=== PATIENT | female | born 1990 | race African-American/Black ===

== ENCOUNTER → 2018-04-17 | Outpatient (CLI) | payer OTHER ==
[~2018-04-17] MED LIST: PRENATAL1 TA7 PO; PROAIR RESPICL90 MCG IH; TYLENOL EXTRA500 MG PO; VICODIN 5-3001 EACH PO; ZITHROMAX250 MG PO
== END | disposition home or self-care (01) ==
LOC: RAD 17:02
DX: R07.9 Chest pain, unspecified (principal)

== ENCOUNTER → 2018-08-30 | Outpatient (CLI) | payer OTHER | END | disposition home or self-care (01) | LOC: LAB 14:10 | DX: N91.2 Amenorrhea, unspecified (principal) ==

== ENCOUNTER → 2018-10-11 | Outpatient (CLI) | payer OTHER | END | disposition home or self-care (01) | LOC: US 10-07 12:57 | DX: Z34.81 Encounter for supervision of other normal pregnancy, first trimester (principal); Z3A.10 10 weeks gestation of pregnancy ==

== ENCOUNTER 2018-12-18 04:59 | Emergency (ER) | payer OTHER ==
[~2018-12-18] VITALS: Ht 167.6 cm; Wt 117.9 kg
== END 2018-12-18 05:23 | disposition home or self-care (01) ==
LOC: ED 04:59
DX: O99.512 Diseases of the respiratory system complicating pregnancy, second trimester (principal); O26.892 Other specified pregnancy related conditions, second trimester; J02.9 Acute pharyngitis, unspecified; M43.6 Torticollis; Z3A.20 20 weeks gestation of pregnancy

== ENCOUNTER → 2018-12-19 | Outpatient (CLI) | payer OTHER ==
[~2018-12-19] MED LIST changes: +ESGIC 325 MG-5050 MG PO; +GOOD NEIGHBOR150 MG PO
== END | disposition home or self-care (01) ==
LOC: RAD 10:51
DX: R06.02 Shortness of breath (principal)

== ENCOUNTER → 2018-12-20 | Outpatient (CLI) | payer OTHER | END | disposition home or self-care (01) | LOC: US 01:43 | DX: Z34.92 Encounter for supervision of normal pregnancy, unspecified, second trimester (principal); Z3A.20 20 weeks gestation of pregnancy ==

== ENCOUNTER → 2019-02-14 | Outpatient (CLI) | payer OTHER ==
[2019-02-15 08:12] LABS: MICROALBUMIN, 24HR URINE <3.0 mg/day (<30.0)
== END | disposition home or self-care (01) ==
LOC: LAB 13:43
PROVIDERS: Nurse Practitioner Women's Health
DX: Z34.83 Encounter for supervision of other normal pregnancy, third trimester (principal); Z3A.28 28 weeks gestation of pregnancy

== ENCOUNTER → 2019-02-26 | Outpatient (CLI) | payer OTHER | END | disposition home or self-care (01) | LOC: US 12:50 | DX: Z34.83 Encounter for supervision of other normal pregnancy, third trimester (principal); Z3A.30 30 weeks gestation of pregnancy ==

== ENCOUNTER → 2019-04-05 | Outpatient (CLI) | payer OTHER ==
[2019-04-10 09:12] LABS: MICROALBUMIN, 24HR URINE <3.6 mg/day (<30.0)
== END | disposition home or self-care (01) ==
LOC: LAB 16:38
PROVIDERS: Nurse Practitioner Women's Health
DX: Z34.83 Encounter for supervision of other normal pregnancy, third trimester (principal); Z3A.35 35 weeks gestation of pregnancy

== ENCOUNTER → 2019-04-14 | Outpatient (CLI) | payer OTHER | END | disposition home or self-care (01) | LOC: US 11:22 | DX: Z34.93 Encounter for supervision of normal pregnancy, unspecified, third trimester (principal); Z3A.37 37 weeks gestation of pregnancy ==

== ENCOUNTER 2019-04-25 22:32 | Emergency (ER) | payer OTHER ==
[~2019-04-25] VITALS: Ht 162.5 cm; Wt 125.2 kg
[~2019-04-25 22:32] MED LIST changes: -ESGIC 325 MG-5050 MG PO; -GOOD NEIGHBOR150 MG PO
[2019-04-25] MEDS ORDERED: ESGIC 325 MG-5050 MG PO (22:37)
[2019-04-25] MEDS ORDERED: GOOD NEIGHBOR150 MG PO (22:37)
== END 2019-04-25 23:35 | disposition home or self-care (01) ==
LOC: ED 22:32
DX: O42.92 Full-term premature rupture of membranes, unspecified as to length of time between rupture and onset of labor (principal); Z3A.38 38 weeks gestation of pregnancy; Z79.899 Other long term (current) drug therapy

== ENCOUNTER → 2019-09-26 | Outpatient (CLI) | payer OTHER ==
[~2019-09-26] MED LIST changes: +ESGIC 325 MG-5050 MG PO; +GOOD NEIGHBOR150 MG PO
== END | disposition home or self-care (01) ==
LOC: RAD 15:36
DX: M25.561 Pain in right knee (principal)

== ENCOUNTER → 2020-02-17 | Outpatient (CLI) | payer OTHER | END | disposition home or self-care (01) | LOC: LAB 14:32 → US 15:00 | DX: N93.9 Abnormal uterine and vaginal bleeding, unspecified (principal) ==

== ENCOUNTER → 2020-02-19 | Outpatient (CLI) | payer OTHER | LOC: LAB 10:14 | DX: Z34.81 Encounter for supervision of other normal pregnancy, first trimester (principal); Z3A.00 Weeks of gestation of pregnancy not specified ==

== ENCOUNTER 2020-06-20 12:33 | Emergency (ER) | payer OTHER ==
[~2020-06-20] VITALS: Ht 162.5 cm; Wt 140.6 kg
[2020-06-20 13:21] LABS: BASO % 0.3 % (0.0-1.0); EOS # 0.1 10*3/uL (0.0-0.4); EOS % 0.9 % (1.0-4.0); HEMATOCRIT 39.5 % (37.0-47.0); LYMPH # 2.5 10*3/uL (1.3-4.4); LYMPH % 21.3 % (27.0-41.0); MEAN CELL VOLUME 83.7 fl (81.0-99.0); MEAN CORPUSCULAR HGB 26.1 pg (27.0-31.0); MEAN CORPUSCULAR HGB CONC 31.1 g/dl (33.0-37.0); MEAN PLATELET VOLUME 9.5 fl (9.6-12.3); MONO # 0.5 10*3/uL (0.1-1.0); MONO % 4.5 % (3.0-9.0); NEUT # 8.5 10*3/uL (2.3-7.9); NEUT % 72.6 % (47.0-73.0); PLATELET COUNT AUTOMATED 407 10*3/uL (130-400); RED BLOOD COUNT 4.72 10*6/uL (4.10-5.10); RED CELL DISTRI WIDTH 14.1 % (0-14.5); WHITE BLOOD COUNT 11.7 10*3/uL (4.8-10.8)
[2020-06-20 13:36] LABS: ALBUMIN 3.6 gm/dl (3.1-4.5); ALKALINE PHOSPHATASE 75 U/L (45-117); BUN 9 mg/dl (7-24); CHLORIDE 108 mmol/L (98-107); CREATININE 0.75 mg/dL (0.55-1.02); POTASSIUM 3.6 mmol/L (3.5-5.1); SGOT/AST 8 IU/L (3-35); SGPT/ALT 18 U/L (12-78); SODIUM 137 mmol/L (136-145)
[2020-06-20 14:12] LABS: BILIRUBIN Negative (Negative); BLOOD Negative (Negative); CLARITY Turbid (Clear); COLOR Yellow (Yellow); GLUCOSE Negative (Negative); KETONE 3+ (Negative); LEUKO ESTERASE 3+ (Negative); NITRITE Negative (Negative); SPECIFIC GRAVITY >= 1.030 (1.001-1.030)
[2020-06-20 14:28] LABS: EPITHELIAL CELLS TNTC; WBC 41-50 wbc/hpf (0-5)
[2020-06-20 14:29] LABS: BACTERIA 3+
[2020-06-20] MEDS ORDERED: CEPHALEXIN500 M1 PO (14:38)
[2020-06-20] MEDS ORDERED: VITAMIN B-625 M1 PO (17:37)
[2020-06-20] MEDS ORDERED: UNISOM25 M1 PO (17:37)
== END 2020-06-20 15:20 | disposition home or self-care (01) ==
LOC: ED 12:33
PROVIDERS: Nurse Practitioner Family
DX: O21.0 Mild hyperemesis gravidarum (principal); O23.41 Unspecified infection of urinary tract in pregnancy, first trimester; O26.891 Other specified pregnancy related conditions, first trimester; Z3A.08 8 weeks gestation of pregnancy; Z79.899 Other long term (current) drug therapy

== ENCOUNTER → 2020-07-08 | Outpatient (CLI) | payer OTHER ==
[~2020-07-08] MED LIST changes: +CEPHALEXIN500 M1 PO; +UNISOM25 M1 PO; +VITAMIN B-625 M1 PO
== END | disposition home or self-care (01) ==
LOC: US 14:00
PROVIDERS: ATTEND Nurse Practitioner Women's Health
DX: Z33.1 Pregnant state, incidental (principal); Z3A.09 9 weeks gestation of pregnancy

== ENCOUNTER → 2020-07-20 | Outpatient (CLI) | payer OTHER ==
[~2020-07-20] MED LIST changes: +ESCITALOPRAM OX20 MG PO; +KEFLEX 500 MG E2 CAP PO
== END | disposition home or self-care (01) ==
LOC: LAB 11:50
PROVIDERS: ATTEND Nurse Practitioner Women's Health
DX: O99.211 Obesity complicating pregnancy, first trimester (principal); O26.891 Other specified pregnancy related conditions, first trimester; R03.0 Elevated blood-pressure reading, without diagnosis of hypertension; Z3A.10 10 weeks gestation of pregnancy

== ENCOUNTER → 2020-08-03 | Outpatient (CLI) | payer OTHER ==
[2020-08-03 12:01] LABS: IRON 40 ug/dL (50-170); TOTAL IRON BINDING CAPACITY 417 ug/dl (250-450)
== END | disposition home or self-care (01) ==
LOC: LAB 11:09
PROVIDERS: ATTEND Nurse Practitioner Women's Health
DX: Z34.81 Encounter for supervision of other normal pregnancy, first trimester (principal); Z3A.10 10 weeks gestation of pregnancy

== ENCOUNTER → 2020-08-25 | Outpatient (CLI) | payer OTHER ==
[2020-08-28 01:08] LABS: AFP VALUE 24.4 ng/mL (.); GEST AGE ON COLLECT 16.3 weeks (.); GESTATIONAL AGE BASED ON Ultrasound (.); INSULIN DEPENDANT DIABETES No (.); MATERNAL AGE AT EDD 28.8 yr (.); MULTIPLE GESTATION No (.); OSBR RISK 9540 (.); RACE Other (.); TEST RESULTS *Screen Negative* (.); WEIGHT 319 lbs (.)
== END | disposition home or self-care (01) ==
LOC: LAB 12:18
PROVIDERS: ATTEND Nurse Practitioner Women's Health
DX: Z34.82 Encounter for supervision of other normal pregnancy, second trimester (principal); Z3A.16 16 weeks gestation of pregnancy

== ENCOUNTER 2020-09-28 11:42 | Emergency (ER) | payer OTHER ==
[~2020-09-28] VITALS: Ht 162.5 cm; Wt 142.9 kg
[~2020-09-28 11:42] MED LIST changes: -ESCITALOPRAM OX20 MG PO; -KEFLEX 500 MG E2 CAP PO
[2020-09-28 12:46] LABS: BILIRUBIN Negative (Negative); BLOOD Negative (Negative); CLARITY Cloudy (Clear); COLOR Yellow (Yellow); GLUCOSE Negative (Negative); KETONE Negative (Negative); LEUKO ESTERASE 2+ (Negative); NITRITE Negative (Negative); SPECIFIC GRAVITY 1.025 (1.001-1.030); UROBILINOGEN 0.2 E.U./dl (0.0-1.0)
[2020-09-28 12:55] LABS: BACTERIA 1+
[2020-09-28 13:10] LABS: BASO % 0.2 % (0.0-1.0); EOS # 0.2 10*3/uL (0.0-0.4); EOS % 1.2 % (1.0-4.0); HEMATOCRIT 35.9 % (37.0-47.0); LYMPH # 2.6 10*3/uL (1.3-4.4); LYMPH % 21.6 % (27.0-41.0); MEAN CELL VOLUME 85.3 fl (81.0-99.0); MEAN CORPUSCULAR HGB 26.6 pg (27.0-31.0); MEAN CORPUSCULAR HGB CONC 31.2 g/dl (33.0-37.0); MEAN PLATELET VOLUME 10.1 fl (9.6-12.3); MONO # 0.7 10*3/uL (0.1-1.0); MONO % 6.1 % (3.0-9.0); NEUT # 8.5 10*3/uL (2.3-7.9); PLATELET COUNT AUTOMATED 334 10*3/uL (130-400); RED BLOOD COUNT 4.21 10*6/uL (4.10-5.10); RED CELL DISTRI WIDTH 14.1 % (0-14.5); WHITE BLOOD COUNT 12.1 10*3/uL (4.8-10.8)
[2020-09-28 13:29] LABS: ALBUMIN 2.8 gm/dl (3.1-4.5); ALKALINE PHOSPHATASE 66 U/L (45-117); BUN 12 mg/dl (7-24); CHLORIDE 109 mmol/L (98-107); CREATININE 0.65 mg/dL (0.55-1.02); POTASSIUM 3.8 mmol/L (3.5-5.1); SGOT/AST 8 IU/L (3-35); SGPT/ALT 13 U/L (12-78); SODIUM 138 mmol/L (136-145); TOTAL PROTEIN 6.9 gm/dL (6.4-8.2)
[2020-09-28] MEDS ORDERED: CEPHALEXIN500 M1 PO ×2 (13:37)
== END 2020-09-28 13:40 | disposition home or self-care (01) ==
LOC: ED 11:42
PROVIDERS: Registered Nurse
DX: N39.0 Urinary tract infection, site not specified (principal); Z79.899 Other long term (current) drug therapy

== ENCOUNTER 2020-09-30 06:46 | Emergency (ER) | payer OTHER ==
[~2020-09-30] VITALS: Ht 162.5 cm; Wt 142.9 kg
[2020-09-30] MEDS ORDERED: KEFLEX 500 MG E2 CAP PO (06:58)
[2020-09-30] MEDS ORDERED: ESCITALOPRAM OX20 MG PO (06:58)
== END 2020-09-30 08:10 | disposition home or self-care (01) ==
LOC: ED 06:46
DX: O26.892 Other specified pregnancy related conditions, second trimester (principal); R10.12 Left upper quadrant pain; Z3A.21 21 weeks gestation of pregnancy; Z79.899 Other long term (current) drug therapy

== ENCOUNTER → 2020-11-04 | Outpatient (CLI) | payer OTHER ==
[~2020-11-04] MED LIST changes: +ESCITALOPRAM OX20 MG PO; +KEFLEX 500 MG E2 CAP PO
== END | disposition home or self-care (01) ==
LOC: COVID19 12:36
PROVIDERS: ATTEND Family Medicine
DX: Z20.822 Contact with and (suspected) exposure to COVID-19 (principal); R05 Cough; R09.89 Other specified symptoms and signs involving the circulatory and respiratory systems

== ENCOUNTER → 2020-12-17 | Outpatient (CLI) | payer OTHER | END | disposition home or self-care (01) | LOC: LAB 07:20 | PROVIDERS: ATTEND Obstetrics & Gynecology Maternal & Fetal Medicine | DX: O99.213 Obesity complicating pregnancy, third trimester (principal); Z3A.31 31 weeks gestation of pregnancy ==

== ENCOUNTER → 2021-01-13 | Outpatient (CLI) | payer OTHER | END | disposition home or self-care (01) | LOC: US 14:30 | PROVIDERS: ATTEND Obstetrics & Gynecology | DX: Z34.83 Encounter for supervision of other normal pregnancy, third trimester (principal); Z3A.36 36 weeks gestation of pregnancy ==

== ENCOUNTER → 2021-04-15 | Outpatient (CLI) | payer OTHER ==
[~2021-04-15] MED LIST changes: +HYDROCODONE-AC1 EAC1 PO; +IMITREX50 MG PO; +IRON325 M1 PO; +Motrin,Rufen800 MG PO; +VERAPAMIL HCL40 MG PO
== END | disposition home or self-care (01) ==
LOC: LAB 13:27
PROVIDERS: ATTEND Obstetrics & Gynecology
DX: Z01.818 Encounter for other preprocedural examination (principal); M25.561 Pain in right knee; Z20.822 Contact with and (suspected) exposure to COVID-19

== ENCOUNTER → 2021-04-19 | Day surgery (SDC) | payer OTHER ==
[2021-04-15 13:56] VITALS: BP 129/77
[2021-04-19] VITALS (7 sets, daily range): BP systolic 119–140; BP diastolic 78–87
[~2021-04-19] VITALS: Ht 162.5 cm; Wt 145.1 kg
== END | disposition home or self-care (01) ==
LOC: SDC 04-15 13:15
PROVIDERS: ATTEND Obstetrics & Gynecology
DX: Z30.2 Encounter for sterilization (principal); N80.9 Endometriosis, unspecified; G43.909 Migraine, unspecified, not intractable, without status migrainosus; F41.9 Anxiety disorder, unspecified; F32.9 Major depressive disorder, single episode, unspecified; J45.909 Unspecified asthma, uncomplicated; Z87.891 Personal history of nicotine dependence; Z79.899 Other long term (current) drug therapy

== ENCOUNTER → 2021-06-21 | Outpatient (CLI) | payer OTHER | END | disposition home or self-care (01) | LOC: COVID19 15:25 | PROVIDERS: ATTEND Internal Medicine | DX: Z11.52 Encounter for screening for COVID-19 (principal) ==

== ENCOUNTER → 2022-02-28 | Outpatient (CLI) | payer OTHER | END | disposition home or self-care (01) | LOC: RAD 09:15 | PROVIDERS: ATTEND Family Medicine | DX: M25.562 Pain in left knee (principal); M25.561 Pain in right knee ==

== ENCOUNTER → 2022-08-16 | Outpatient (CLI) | payer OTHER | END | disposition home or self-care (01) | LOC: RAD 10:46 | PROVIDERS: ATTEND Family Medicine | DX: M25.512 Pain in left shoulder (principal) ==

== ENCOUNTER 2023-02-09 15:06 | Emergency (ER) | payer OTHER ==
[2023-02-09] MEDS ORDERED: IBUPROFEN600 MG PO (15:38)
[2023-02-09] MEDS ORDERED: AMOXICILLIN500 M2 PO (15:38)
== END 2023-02-09 15:49 | disposition home or self-care (01) ==
LOC: ED 15:06
DX: K04.7 Periapical abscess without sinus (principal); F41.9 Anxiety disorder, unspecified; J45.909 Unspecified asthma, uncomplicated; Z98.890 Other specified postprocedural states